=== PATIENT | female | born 1965 | race African-American/Black ===

== ENCOUNTER 2017-09-14 10:13 | Emergency (ER) | payer MEDICAID, SELFPAY ==
[2017-09-14 11:11] LABS: #Basophils 0.1 thou/uL (0.0-0.2); #Eosinphils 0.1 thou/uL (0.0-0.7); #Lymphocytes 4.3 thou/uL (1.20-3.40); #Monocytes 0.7 thou/uL (0.11-0.59); #Neutrophils 7.8 thou/uL (1.40-6.50); %Basophils 0.6 % (0.0-1.0); %Eosinophils 0.6 % (0.0-10.0); %Lymphocytes 33.1 % (21.0-51.0); %Monocytes 5.5 % (0.0-10.0); Hematocrit 33.6 % (36.0-47.0); Mean Platelet Volume 7.6 fL (7.4-10.4); Red Blood Cell (RBC) Count 3.76 mill/uL (4.20-5.40); White Blood Cell (WBC) Count 12.9 thou/uL (4.8-10.8)
[2017-09-14 11:27] LABS: ALT (SGPT) 8 U/L (8-55); AST (SGOT) 13 U/L (5-34); Alkaline Phosphatase 81 U/L (40-150); Anion Gap 12 mmol/L (10-20); BUN (Urea Nitrogen) 20 mg/dL (9.8-20.1); Bilirubin, Total 0.3 mg/dL (0.2-1.2); CK (CPK) 107 U/L (29-168); Calc. Creatinine Clearance 0 mL/min (70-130); Calcium 9.8 mg/dL (7.8-10.44); Carbon Dioxide 25 mmol/L (22-29); Chloride 108 mmol/L (98-107); Estimated GFR-MDRD 53; Globulin 3.5 g/dL (2.4-3.5); Protein, Total 7.2 g/dL (6.0-8.3)
[2017-09-14 11:32] LABS: Troponin I Less than 0.010 ng/mL (< 0.028)
[2017-09-14 11:44] LABS: Bilirubin Negative (Negative); Blood, Urine Negative (Negative); Glucose, Urine (Dipstick) Negative (Negative); Ketone, Urine Negative (Negative); Nitrite Negative (Negative); Protein, Urine (Dipstick) 30 mg/dL (Neg-Trace); Urobilinogen 0.2 mg/dL (0.2-1.0)
[2017-09-14 12:01] LABS: Bacteria/HPF None Seen HPF (None Seen); Hyaline Casts/LPF NONE SEEN LPF (0-3 Hyaline); RBC/HPF None Seen HPF (0-3); Squamous Epithelial 0-3 HPF (0-3); WBC/HPF None Seen HPF (0-3)
--- NOTE | 2017-09-14 12:30 | CT ---
CT HEAD NONCONTRAST DATE: 09/14/17 HISTORY: Altered mental status. Right facial droop. COMPARISON: 11/08/15. FINDINGS: There is no evidence of acute intracranial hemorrhage or infarct. The ventricles appear normal in siz e, shape, and position. Encephalomalacia in the left cerebellar hemisphere has progressed evolved sin ce the prior study. No mass effect or shift of midline structures. Visualized paranasal sinuses remai n well aerated. 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 No acute intracranial abnormalities are demonstrated on n oncontrast CT head. POS: [facility]
== END 2017-09-14 12:38 | disposition home or self-care (01) ==
LOC: ERS 10:13
DX: G51.0 Bell's palsy (principal); E11.9 Type 2 diabetes mellitus without complications; I10 Essential (primary) hypertension; Z79.899 Other long term (current) drug therapy; Z79.4 Long term (current) use of insulin; Z79.82 Long term (current) use of aspirin
CPT/HCPCS: 36415; 70450; 80053; 81003; 81015; 82550; 82553; 84484; 85025; 93005

== ENCOUNTER 2019-01-20 05:39 | Day surgery (SDC) | payer MEDICARE ==
[2019-01-19 12:55] VITALS: BMI 32.1
[~2019-01-20 05:39] MED LIST: EPINEPHrine 0.3 MG, Dextrose 50% 3 ML in Ophthalmic Irrigation Solution 500 ML FS SCH
[2019-01-20] MEDS ORDERED: Phenylephrine 2.5% Ophth Soln 5 ML BOT ONE (06:03)
[2019-01-20] MEDS ORDERED: Cyclopentolate 1% Opth Drop 2 ML BOT ONE (06:03)
[2019-01-20] MEDS ORDERED: Fentanyl 100 MCG/2 ML VIAL ONE (06:45)
[2019-01-20] MEDS ORDERED: Midazolam HCl 2 mg/2 ml Vial ONE (06:45)
[2019-01-20] MEDS ORDERED: Lidocaine 4% PF 5 ML AMP ONE (12:00)
[2019-01-20] MEDS ORDERED: PROPOFOL 200 MG/20 ML VIAL ONE (12:00)
[2019-01-20] MEDS ORDERED: Maxitrol 0.1% Opth Oint 3.5 GM TUBE ONE (12:00)
[2019-01-20] MEDS ORDERED: Triamcinolone 40 MG/ML VIAL ONE (12:00)
[2019-01-20] MEDS ORDERED: Lidocaine 1% PF 5 ML VIAL ONE (12:00)
[2019-01-20] MEDS ORDERED: Bupivacaine 0.75% 10 ML AMP ONE (12:00)
[2019-01-20] MEDS ORDERED: CEFAZOLIN 1 GM VIAL ONE (12:00)
[2019-01-20] MEDS ORDERED: Atropine Sulfate 1% Ophth Ointment 3.5 gm Tube ONE (12:00)
--- NOTE | 2019-01-20 16:22 | OP ---
DATE OF PROCEDURE: 01/20/2019 PREOPERATIVE DIAGNOSES: Tractional retinal detachment, posterior synechiae, right eye. POSTOPERATIVE DIAGNOSES: Tractional retinal detachment, posterior synechiae, right eye. PROCEDURES PERFORMED: Pars plana vitrectomy, tractional retinal detachment repair, and pupilloplasty, right eye. ANESTHESIA: Local with monitored anesthesia care. DESCRIPTION OF PROCEDURE: The patient was identified in the preop holding area. Appropriate informed consent for planned surgical procedure on the right eye had been obtained. The patient was transported to the operative suite. Appropriate cardiopulmonary monitoring was established. Local anesthesia obtained using retrobulbar modified Van Lint lid block using 50:50 mixture of 4% lidocaine and 0.75% bupivacaine. The patient was prepped and draped in usual sterile manner for ophthalmic surgery on the right eye. Lid speculum was placed in the right eye. A 25-gauge trocar was placed through the conjunctiva and sclera superotemporally, inferotemporally, and supranasally. Infusion line was placed inferotemporally. Light pipe vitreous cutter inserted into the eye. Poor view was noted at this time. The pupil was minimally dilated. Iris hooks were placed to enlarge the pupil. Core vitrectomy was performed. Traction was removed from the retinal surface temporally and nasally. Complete air-fluid exchange was performed with 10 minutes being left for fluid to drain posteriorly. Panretinal photocoagulation was placed on non-macular areas of the retina. Silicone oil was infused at the eyes through superior sclerotomy. Eye was noted to retain the normal pressure. Sclerotomy was suture closed with 7-0 Vicryl suture. Conjunctiva was closed with 6-0 plain gut suture. Retrobulbar Kenalog and subconjunctival Ancef were placed. Atropine antibiotic ointment was placed. The eye was patched and shielded. The patient was taken to the postoperative recovery unit in good condition, having suffered no immediate perioperative complications. The patient was instructed to keep the patch and shield on, avoid lifting, bending, avoid flat and back positioning. Follow up in the morning with Dr. Ruffin. Job ID: [id number]
== END 2019-01-20 09:53 | disposition home or self-care (01) ==
LOC: SDC 05:39
PROVIDERS: ATTEND Ophthalmology Retina Specialist
PROC: 08T43ZZ Resection of Right Vitreous, Percutaneous Approach (ICD-10-PCS; principal; 2019-01-20)
DX: H33.41 Traction detachment of retina, right eye (principal); H21.541 Posterior synechiae (iris), right eye; E66.9 Obesity, unspecified; Z68.32 Body mass index [BMI] 32.0-32.9, adult; Z79.4 Long term (current) use of insulin; Z79.82 Long term (current) use of aspirin; Z79.899 Other long term (current) drug therapy; Z88.5 Allergy status to narcotic agent
CPT/HCPCS: 67108; 82962; C1814; 36416; J0171; J0690; J2001; J2250; J2704; J3010; J3301; J3490

== ENCOUNTER 2019-12-23 09:11 | Outpatient (CLI) | payer MEDICARE ==
--- NOTE | 2019-12-23 10:03 | MMO ---
Bilateral MAMMO Bilat Screen [facility]. CLINICAL HISTORY: Patient is 54 years old and is seen for screening. The patient has the following family history of breast cancer: 4 maternal aunts. The patient has no personal history of cancer. VIEWS: The views performed were: bilateral craniocaudal with tomosynthesis and bilateral mediolateral oblique with tomosynthesis. FILMS COMPARED: The present examination has been compared to prior imaging studies performed at [facility] on 06/04/2010, 07/01/2011, 08/16/2012 and 08/17/2015. This study has been interpreted with the assistance of computer-aided detection. MAMMOGRAM FINDINGS: There are scattered fibroglandular densities. There are several stable focal asymmetries seen in both breasts. There are no suspicious masses, suspicious calcifications, or new areas of architectural distortion. IMPRESSION: THERE IS NO MAMMOGRAPHIC EVIDENCE OF MALIGNANCY. A ROUTINE FOLLOW-UP MAMMOGRAM IN 1 YEAR IS RECOMMENDED. THE RESULTS OF THIS EXAM WERE SENT TO THE PATIENT. ACR BI-RADS Category 2 - Benign finding MAMMOGRAPHY NOTE: 1. A negative mammogram report should not delay a biopsy if a dominant of clinically suspicious mass is present. 2. Approximately 10% to 15% of breast cancers are not detected by mammography. 3. Adenosis and dense breasts may obscure an underlying neoplasm. Reported by: SUKUMAR WALDEN MD Electonically Signed: [id number]
== END 2019-12-23 09:12 | disposition home or self-care (01) ==
LOC: BICMAMMO 09:11
PROVIDERS: ATTEND Nurse Practitioner Family
DX: Z12.31 Encounter for screening mammogram for malignant neoplasm of breast (principal); Z80.3 Family history of malignant neoplasm of breast
CPT/HCPCS: 77063; 77067

== ENCOUNTER 2020-07-10 10:07 | Outpatient (CLI) | payer MEDICARE ==
--- NOTE | 2020-07-10 10:24 | RAD ---
Left shoulder 3 views: 07/10/2020 COMPARISON: None available HISTORY: Left shoulder pain FINDINGS: Inferior acromial osteophyte formation. No widening of the acromioclavicular or coracoclavi cular interspace. No displaced fracture or evidence of dislocation is seen. IMPRESSION: No acute osseous abnormality.
== END 2020-07-10 10:08 | disposition home or self-care (01) ==
LOC: RAD-FRANK 10:07
PROVIDERS: ATTEND Nurse Practitioner Family
DX: M25.512 Pain in left shoulder (principal)

== ENCOUNTER 2020-07-16 10:31 | Outpatient (CLI) | payer MEDICARE ==
--- NOTE | 2020-07-16 11:35 | CT ---
Exam: Head CT without contrast HISTORY: Hydrocephalus COMPARISON: 09/14/2017 FINDINGS: Hemorrhage: No intraparenchymal hemorrhage or extra-axial hematoma. Brain parenchyma: Cerebrum: Cortical goode-white matter differentiation is preserved. No mass effect or midline shift. B asilar cisterns are patent Cerebellum: Stable encephalomalacia and gliosis in the left cerebellar hemisphereminimal chronic smal l vessel ischemic changes of the white matter Ventricular system: Ventricles and sulci are patent and symmetric. Calvarium: Intact. Sinuses and mastoid air cells: Adequate aeration. Additional findings: Hyperdensity in the right globe may represent treatment for previous retinal det achment. IMPRESSION: No acute intracranial process.
== END 2020-07-16 10:32 | disposition home or self-care (01) ==
LOC: BICCT 10:31
PROVIDERS: ATTEND Nurse Practitioner Family
DX: G91.9 Hydrocephalus, unspecified (principal)
CPT/HCPCS: 70450

== ENCOUNTER 2020-09-24 06:14 | Outpatient (CLI) | payer MEDICARE ==
[2020-09-24 18:01] LABS: SARS-CoV-2 MS2 Positive; SARS-CoV-2 N Gene Negative; SARS-CoV-2 S Gene Negative; SARS-CoV-2 by NAA Not Detected (NotDetected); SARS-CoV-2 orf1ab Negative
== END 2020-09-24 06:15 | disposition home or self-care (01) ==
LOC: LABBT 06:14
PROVIDERS: ATTEND Ophthalmology Retina Specialist
DX: Z01.812 Encounter for preprocedural laboratory examination (principal); H43.391 Other vitreous opacities, right eye; Z20.828 Contact with and (suspected) exposure to other viral communicable diseases
CPT/HCPCS: 87635; U0003

== ENCOUNTER 2020-09-27 08:36 | Day surgery (SDC) | payer MEDICARE ==
[2020-09-26 09:09] VITALS: BMI 32.5
[~2020-09-27 08:36] MED LIST changes: +EPINEPHrine 0.3 MG in Ophthalmic Irrigation Solution 500 ML IRR SCH; -EPINEPHrine 0.3 MG, Dextrose 50% 3 ML in Ophthalmic Irrigation Solution 500 ML FS SCH
[2020-09-27] MEDS ORDERED: Phenylephrine 2.5% Ophth Soln 5 ML BOT ONE (08:47)
[2020-09-27] MEDS ORDERED: Cyclopentolate HCl 1% 5 ML BOT ONE (08:48)
[2020-09-27] MEDS ORDERED: Midazolam HCl 2 mg/2 ml Vial ONE (10:02)
[2020-09-27] MEDS ORDERED: Fentanyl 100 MCG/2 ML VIAL ONE (10:02)
[2020-09-27] MEDS ORDERED: Maxitrol 0.1% Opth Oint 3.5 GM TUBE ONE (10:55)
[2020-09-27] MEDS ORDERED: Bupivacaine PF 0.75% SDV 10 ML ONE (10:55)
[2020-09-27] MEDS ORDERED: Triamcinolone 40 MG/ML VIAL ONE (10:55)
[2020-09-27] MEDS ORDERED: Lidocaine 1% PF 5 ML VIAL ONE (10:55)
[2020-09-27] MEDS ORDERED: PROPOFOL 200 MG/20 ML VIAL ONE (10:55)
[2020-09-27] MEDS ORDERED: CEFAZOLIN 1 GM VIAL ONE (10:55)
[2020-09-27] MEDS ORDERED: Lidocaine 4% PF 5 ML AMP ONE (10:55)
--- NOTE | 2020-09-27 22:22 | OP ---
DATE OF PROCEDURE: 09/27/2020 PREOPERATIVE DIAGNOSIS: Vitreous opacification, right eye. POSTOPERATIVE DIAGNOSIS: Vitreous opacification, right eye. PROCEDURES PERFORMED: Pars plana vitrectomy, membrane peel. ANESTHESIA: Local with monitored anesthesia care. DESCRIPTION OF PROCEDURE: The patient was identified in the preoperative holding area. Appropriate informed consent for the planned surgical procedure on the right eye had been obtained. The patient was transported to the operative suite and appropriate cardiopulmonary monitoring was established. Local anesthesia was obtained using retrobulbar modified Van Lint lid block. The patient was prepped and draped in usual sterile manner for ophthalmic surgery on the right eye. Lid speculum was placed in the right eye. A 25-gauge trocar was placed in the conjunctiva and sclera supratemporally, inferotemporally, and supranasally. Infusion line was placed inferotemporally. Light pipe and vitreous cutter were inserted into the eye. Core vitrectomy was performed. Viscous fluid removal device was inserted into the eye and silicone oil was removed. excised and peeled away from the intra-ocular lens. Direct inspection showed no elevation of the retina, and sclerotomy suture was closed with 6-0 plain gut suture. Retrobulbar Kenalog and subconjunctival Ancef were placed. Antibiotic ointment was placed. The eye was patched and shielded. The patient was taken to postoperative recovery unit in good condition having suffered no immediate perioperative complications. The patient was instructed to keep patch and shied on, avoid lifting or bending. Followup appointment with Dr. Ruffin. Job ID: [id number]
== END 2020-09-27 12:10 | disposition home or self-care (01) ==
LOC: SDC 08:36
PROVIDERS: ATTEND Ophthalmology Retina Specialist
PROC: 08T43ZZ Resection of Right Vitreous, Percutaneous Approach (ICD-10-PCS; principal; 2020-09-27)
DX: H43.391 Other vitreous opacities, right eye (principal); Z88.5 Allergy status to narcotic agent
CPT/HCPCS: 93005; 93010; J0171; J0690; J2001; J2250; J2704; J3010; J3301; J3490

== ENCOUNTER 2020-10-08 15:17 | Inpatient (IN) | payer MEDICARE ==
[2020-10-08 15:59] LABS: Hemoglobin 11.2 g/dL (12.0-16.0); Mean Corpuscular HGB CONC 31.2 g/dL (32.0-36.0); Mean Corpuscular Hemoglobin 27.9 pg (27.0-31.0); Mean Corpuscular Volume 89.6 fL (78.0-98.0); Mean Platelet Volume 8.5 fL (7.4-10.4); Platelet Count 237 thou/uL (130-400); RBC Distribution Width 13.1 % (11.5-14.5); Red Blood Cell (RBC) Count 4.02 mill/uL (4.20-5.40); White Blood Cell (WBC) Count 17.9 thou/uL (4.8-10.8)
[2020-10-08] MEDS ORDERED: Dextrose 50% Abboject 50 ML SYRINGE ONE ×2 (16:06→16:26)
[2020-10-08 16:13] LABS: Band 1 % (5-11); Lymphocytes 33 % (21-51); MDiff Complete? YES; Monocytes 6 % (0-10); Neutrophil 60 % (42-75); Platelet Morphology Comment Appears Adequate; RBC Morphology Normal
[2020-10-08 16:25] LABS: ALT (SGPT) 15 U/L (8-55); AST (SGOT) 25 U/L (5-34); Albumin 3.9 g/dL (3.5-5.0); Alkaline Phosphatase 90 U/L (40-110); Anion Gap 20 mmol/L (10-20); BUN (Urea Nitrogen) 33 mg/dL (9.8-20.1); Bilirubin, Total 0.2 mg/dL (0.2-1.2); Calc. Creatinine Clearance 0 mL/min (70-130); Calcium 8.7 mg/dL (7.8-10.44); Carbon Dioxide 19 mmol/L (22-29); Chloride 106 mmol/L (98-107); Globulin 4.2 g/dL (2.4-3.5); Glucose 48 mg/dL (70-105); Potassium 5.6 mmol/L (3.5-5.1); Protein, Total 8.1 g/dL (6.0-8.3); Sodium 139 mmol/L (136-145)
[2020-10-08 17:34] LABS: Magnesium 1.6 mg/dL (1.6-2.6)
--- NOTE | 2020-10-08 18:17 | RAD ---
EXAM: Single view of the chest HISTORY: Hypoglycemia with altered mental status COMPARISON: 10/30/2015 FINDINGS: Single view of the chest shows an enlarged but stable cardiomediastinal silhouette. There i s no evidence of consolidation, mass, or pleural effusion. No acute osseous abnormality. IMPRESSION: Stable cardiomegaly
[2020-10-08 19:46] LABS: Bilirubin Negative (Negative); Blood, Urine Negative (Negative); Clarity Clear (Clear); Glucose, Urine (Dipstick) 500 mg/dL (Negative); Ketone, Urine Negative (Negative); Leukocyte Negative Leu/uL (Negative); Nitrite Negative (Negative); Protein, Urine (Dipstick) 10 mg/dL (Neg-Trace); Specific Gravity, Urine 1.009 (1.002-1.036); Urobilinogen Normal mg/dL (Less than 2); pH, Urine 5.5 (5.0-9.0)
[2020-10-08 20:08] LABS: Lactic Acid 3.4 mmol/L (0.5-2.2)
[2020-10-08 20:09] LABS: Anion Gap 18 mmol/L (10-20); BUN (Urea Nitrogen) 33 mg/dL (9.8-20.1); Calc. Creatinine Clearance 0 mL/min (70-130); Calcium 8.5 mg/dL (7.8-10.44); Carbon Dioxide 20 mmol/L (22-29); Chloride 106 mmol/L (98-107); Glucose 379 mg/dL (70-105); Potassium 4.5 mmol/L (3.5-5.1); Sodium 139 mmol/L (136-145)
[2020-10-08] MEDS ORDERED: Dextrose 5% in Water 1,000 ML IV PRN (21:37)
[2020-10-08] MEDS ORDERED: Dextrose 50% Abboject 50 ML SYRINGE SLOW IVP PRN (21:37)
[2020-10-08 21:57] LABS: Troponin I Less than 0.010 ng/mL (< 0.028)
[2020-10-08] MEDS ORDERED: Piperacillin/Tazobactam 4.5 GM in Sodium Chloride 0.9% 100 ML IVPB SCH (22:00)
[2020-10-08 22:28] LABS: Creatinine, Urine 44.14 mg/dL (47-110)
--- NOTE | 2020-10-08 23:12 | PDOC.HHP ---
Hospitalist HPI - History of Present Illness Altered mental status, hypoglycemia History of Present Illness: This is a 55-year-old female patient with a history of Diabetes mellitus on insulin, hypertension who recently had right vitrectomy was brought in by EMS today on account of altered mental status in the setting of hypoglycemia. She notes having taken her Metformin and insulin but missed a mealgetting her altered. On EMS evaluation her blood glucose was in the 30s. On arrival here blood glucose was still low at 48 in spite of dextrose administered by EMS. On arrival she was given 2 rounds of dextrose IV which resolved her hypoglycemia. She was however found to be hyperkalemic with potassium of 5.6 which resolved after initial IV fluid bolus to 4.5. She also had elevated creatinine at 1.77 from a baseline of 1.29 a month ago. After IVF fluid 1 L bolus creatinine interestingly increased to 1.94. Initial lactate was also 2.8 which increased on repeat to 3.4. CBC showed a WBC of 17.9, hemoglobin 11.2 with no bands. Platelet was 234. Upon resolving of her blood glucose, mental state came back to baseline however given her worsening lactic acidosis and increased WBC there was concerns for sepsis. Chest x-ray was ordered which showed stable cardiomegaly with no acute events. Her urinalysis was also essentially negative. Hospitalist team was consulted to consider admission. At the time of my evaluation, patient was sitting up in bed oriented x4 in no acute distress looking quite well. Given the incongruity of her labs however decided to go ahead and admit. Hospitalist ROS - Review of Systems Constitutional: denies: fever, chills, sweats Respiratory: denies: cough, dry, shortness of breath, hemoptysis Cardiovascular: denies: chest pain, palpitations, orthopnea, paroxysmal noc. dyspnea Gastrointestinal: denies: nausea, vomiting, abdominal pain, diarrhea Musculoskeletal: denies: neck pain, shoulder pain Neurological: denies: weakness, numbness, incoordination, change in speech All other systems reviewed; all pertinent +/- noted in HPI/Subj - Medication Medications: Medications: Currently refer to ambulatory [place]. Allergies: Tramadol Hospitalist History - Past Medical History Other Medical History: Diabetes mellitus, hypertension - Past Surgical History Other Surgical History: Vitrectomy - Social History Smoking Status: Never smoker Alcohol: reports: None Living Situation: With Family Activity level: independent ambulation - Exam General Appearance: awake alert Eye: PERRL, anicteric sclera ENT: normocephalic atraumatic, no oropharyngeal lesions Neck: supple, symmetric Heart: RRR, no murmur, no gallops, no rubs Respiratory: CTAB, no wheezes, no rales, no ronchi Gastrointestinal: soft, non-tender, non-distended, normal bowel sounds, no palpable masses, no hepatomegaly Extremities: no cyanosis, no clubbing, no edema Neurological: cranial nerve grossly intact, no weakness, no focal deficits Psychiatric: normal affect, normal behavior, A&O x 3 Hospitalist Results - Labs Result Diagrams: 10/08/20 15:42 10/08/20 19:46 Lab results: WBC 17.9 thou/uL (4.8-10.8) H 10/08/20 15:42 Hgb 11.2 g/dL (12.0-16.0) L 10/08/20 15:42 Hct 36.0 % (36.0-47.0) 10/08/20 15:42 MCV 89.6 fL (78.0-98.0) 10/08/20 15:42 Plt Count 237 thou/uL (130-400) 10/08/20 15:42 Band Neuts % (Manual) 1 % (5-11) L 10/08/20 15:42 Sodium 139 mmol/L (136-145) 10/08/20 19:46 Potassium 4.5 mmol/L (3.5-5.1) 10/08/20 19:46 Chloride 106 mmol/L (98-107) 10/08/20 19:46 Carbon Dioxide 20 mmol/L (22-29) L 10/08/20 19:46 BUN 33 mg/dL (9.8-20.1) H 10/08/20 19:46 Creatinine 1.94 mg/dL (0.6-1.1) H 10/08/20 19:46 Glucose 379 mg/dL (70-105) H 10/08/20 19:46 Lactic Acid 3.4 mmol/L (0.5-2.2) H 10/08/20 19:46 Calcium 8.5 mg/dL (7.8-10.44) 10/08/20 19:46 Total Bilirubin 0.2 mg/dL (0.2-1.2) 10/08/20 15:42 AST 25 U/L (5-34) 10/08/20 15:42 ALT 15 U/L (8-55) 10/08/20 15:42 Alkaline Phosphatase 90 U/L (40-110) 10/08/20 15:42 Troponin I Less than 0.010 ng/mL (< 0.028) 10/08/20 21:12 B-Natriuretic Peptide 29.3 pg/mL (0-100) 10/08/20 17:00 Serum Total Protein 8.1 g/dL (6.0-8.3) 10/08/20 15:42 Albumin 3.9 g/dL (3.5-5.0) 10/08/20 15:42 Lipase 77 U/L (8-78) 10/08/20 17:00 Urine Ketones Negative mg/dL (Negative) 10/08/20 19:30 Urine Blood Negative (Negative) 10/08/20 19:30 Urine Nitrite Negative (Negative) 10/08/20 19:30 Ur Leukocyte Esterase Negative Laura/uL (Negative) 10/08/20 19:30 Hospitalist H&P A/P - Plan Plan: This a 55-year-old female patient facial diabetes mellitus who was brought in on account of altered mental status secondary to hypoglycemia. She has leukocytosis and increasing lactic acid and apparent worsening renal function. She will be admitted for observation. Acute encephalopathy Resolvedsecondary to hypoglycemia We will continue monitoring. Possible sepsis Leukocytosis, initial hypothermia with her temperature 94.3, lactic acidosis All patient appears stable we will take blood cultures and start Zosyn for now She received 2 L normal saline in ED We will monitor overnight Hypoglycemia Resolved We will monitor. CJ on CKD This note improving with IV fluid Nephrology consulted Diabetes mellitus Start correctional dose insulin Monitor glucose. Hypertension Blood pressure stablemonitor VT prophylaxisHeparin CODE STATUSfull code
[2020-10-09] MEDS: Piperacillin/Tazobactam 4.5 GM in Sodium Chloride 0.9% 100 ML IVPB SCH ×4 (00:08→23:16)
[2020-10-09 00:30] LABS: Troponin I Less than 0.010 ng/mL (< 0.028)
[2020-10-09] MEDS: HumaLOG 300 UNITS/3 ML VIAL SC PRN ×4 (00:47→20:27)
[2020-10-09 01:43] VITALS: BMI 32.5
[2020-10-09 05:19] LABS: SARS-CoV-2 MS2 Positive; SARS-CoV-2 N Gene Negative; SARS-CoV-2 S Gene Negative; SARS-CoV-2 by NAA Not Detected (NotDetected); SARS-CoV-2 orf1ab Negative
[2020-10-09 05:29] LABS: #Eosinphils 0.1 thou/uL (0.0-0.7); #Lymphocytes 4.5 thou/uL (1.20-3.40); #Monocytes 0.9 thou/uL (0.11-0.59); #Neutrophils 8.6 thou/uL (1.40-6.50); %Basophils 0.2 % (0.0-1.0); %Eosinophils 0.5 % (0.0-10.0); %Lymphocytes 32.1 % (21.0-51.0); %Monocytes 6.3 % (0.0-10.0); %Neutrophils 60.8 % (42.0-75.0); Hemoglobin 9.4 g/dL (12.0-16.0); Mean Corpuscular HGB CONC 32.6 g/dL (32.0-36.0); Mean Corpuscular Hemoglobin 29.4 pg (27.0-31.0); Mean Corpuscular Volume 89.9 fL (78.0-98.0); Mean Platelet Volume 8.4 fL (7.4-10.4); Platelet Count 209 thou/uL (130-400); RBC Distribution Width 12.6 % (11.5-14.5); Red Blood Cell (RBC) Count 3.19 mill/uL (4.20-5.40); White Blood Cell (WBC) Count 14.1 thou/uL (4.8-10.8)
[2020-10-09 05:51] LABS: Anion Gap 13 mmol/L (10-20); BUN (Urea Nitrogen) 30 mg/dL (9.8-20.1); Calc. Creatinine Clearance 49 mL/min (70-130); Calcium 8.3 mg/dL (7.8-10.44); Carbon Dioxide 23 mmol/L (22-29); Chloride 109 mmol/L (98-107); Glucose 124 mg/dL (70-105); Potassium 4.3 mmol/L (3.5-5.1); Sodium 141 mmol/L (136-145)
[2020-10-09] MEDS: Carvedilol 3.125 MG TAB PO SCH ×2 (08:46→16:44)
[2020-10-09] MEDS: Aspirin Chewable 81 MG TAB PO SCH (08:46)
[2020-10-09] MEDS ORDERED: Sodium Bicarbonate 50 MEQ in Sodium Chloride 0.45% 1,000 ML IV SCH (09:30)
[2020-10-09 09:36] LABS: Ferritin 76.75 ng/mL (10-291)
[2020-10-09 09:48] LABS: Iron 106 ug/dL (50-170); Iron Binding Capacity, Total 235 mcg/dL (265-497)
--- NOTE | 2020-10-09 14:08 | CON ---
DATE OF CONSULTATION: 10/09/2020 SERVICE: Nephrology. REASON FOR CONSULTATION: Elevated creatinine. REQUESTING PHYSICIAN: Chandan Chavez MD HISTORY OF PRESENT ILLNESS: 55-year-old female with known history of diabetes mellitus of insulin, hypertension, and others; admitted due to acute mental status change in the setting of hypoglycemia. The patient reportedly missed her meal and subsequently developed altered mental status and was found to have blood glucose in 30s. She was treated with dextrose infusion with improvement. She, however, also was found to have leukocytosis as well as elevated lactic acid and elevated creatinine. Nephrology consult was requested due to elevation in creatinine. On presentation, creatinine was 1.77 and following treatment with IV fluid, it went up to 1.94. The patient denied nausea, vomiting, diarrhea, dysuria, hematuria, hematochezia, or melena. She also denied fever or chills. She denied use of NSAIDs or have medication use. She reportedly has seen a kidney doctor before, but was unable to tell me the name of the kidney doctor and review of the medical records showed no Nephrology visit prior. PAST MEDICAL HISTORY: 1. Hypertension. 2. Diabetes mellitus. PAST SURGICAL HISTORY: Recent vitrectomy. FAMILY HISTORY: Significant for hypertension, diabetes, and cardiac disease in both parents. SOCIAL HISTORY: The patient lives with family. Denied smoking, alcohol, or recreational drug use. ALLERGIES: NO KNOWN DRUG ALLERGIES REPORTED. MEDICATIONS: Prior to hospital medications are as follows: 1. Multivitamin one tablet daily. 2. Lispro insulin 10 units t.i.d. subcutaneously. 3. Ferrous sulfate 325 mg p.o. b.i.d. 4. Levemir 45 units subcutaneously in the morning. 5. Lisinopril 20 mg p.o. b.i.d. 6. Metformin 1000 mg p.o. b.i.d. with meals. 7. Vitamin B12 1000 mcg p.o. daily. 8. Aspirin 81 mg p.o. daily. 9. Carvedilol 3.125 mg p.o. b.i.d. Current hospital medications are as follows: 1. Zosyn 4.5 g every 8 hours. 2. Aspirin 81 mg p.o. daily. 3. Carvedilol 3.125 mg p.o. b.i.d. REVIEW OF SYSTEMS: 12-point review of system performed was negative other than pertinent positives and negatives included in the history of present illness. PHYSICAL EXAMINATION: VITAL SIGNS: Temperature 97.2, pulse 77, respiratory rate 12, SpO2 of 96% on room air, blood pressure is 138/71. GENERAL: Middle-age female, in no obvious distress. Afebrile. Anicteric. Acyanotic. HEENT: Normocephalic, atraumatic. Oral mucosa is mildly dry. NECK: Supple with no JVD. CARDIOVASCULAR: Regular rhythm and rate with normal heart sounds one and two. RESPIRATORY: Good air entry bilaterally with no crackle or rhonchi or use of accessory muscles. GI: Full, soft, nontender, nondistended with normal bowel sounds. EXTREMITIES: Grossly normal looking atraumatic with no edema or erythema. SKIN: Rather very dry with no erythema or rash. LENS MOLDER: Conscious, alert, oriented x3 with appropriate mental status. Cranial nerves II through XII are grossly intact. DIAGNOSTIC DATA: CBC on presentation on October 08 showed WBC count of 17.9, hemoglobin of 11.2, MCV of 89.6, and platelet of 237. Repeat CBC today showed WBC 14.1, hemoglobin of 9.4, and platelet of 209. Chemistry: CMP performed on presentation yesterday showed sodium 139, potassium 5.6, chloride 106, CO2 of 19, BUN 33, creatinine 1.77, glucose 45, calcium 8.7. Total bilirubin 0.2. AST 25, ALT 15, alkaline phosphatase 90. Total protein 8.1, albumin 3.9. Magnesium was 1.6 and lactic acid was 2.8. Lipase was 77. Repeat chemistry earlier today showed sodium 141, potassium 4.3 chloride 109 CO2 of 23, BUN 30, creatinine 1.68, glucose 124, calcium 8.3. Urinalysis performed yesterday showed colorless clear urine with pH of 5.5, specific gravity of 1.009, positive glucose. Negative nitrite, blood, ketone, bilirubin, and leukocyte esterase. Urine electrolytes showed urine creatinine of 44.14 and urine sodium of 35. Random urine total protein is 17. Chest x-ray performed on presentation showed stable cardiomegaly with no evidence of consolidation mass or pleural effusion. Most recent creatinine prior to current hospitalization was on September 14, 2017, and creatinine then was 1.29. ASSESSMENT: 1. Acute kidney injury: Most likely due to hemodynamic factors related to volume depletion and use of ALEXIS inhibitor. Creatinine is beginning to trend down worse. 2. Chronic kidney disease: Most likely stage III. 3. Hyperkalemia: Due to acute kidney injury and use of qrmkt-bfjfrifpcyr-wsickrqvuyp system nelson. 4. Volume depletion. 5. Acute metabolic encephalopathy due to hypoglycemia. 6. Hypertension: Blood pressure control is acceptable. 7. Diabetes mellitus, on treatment. 8. Lactic acidosis: Most likely related to volume depletion, acute kidney injury, and use of metformin. 9. Metabolic acidosis. PLAN: Start IVF therapy with half-normal saline plus sodium bicarbonate. [place] oral intake advised We will recheck renal function in the morning. Renally dose all medications. Avoid RAAS nelson. Many thanks for involving us in the care of this patient. We will continue to follow along with you. Job ID: [id number] [facility]ITALDarion
[2020-10-09] MEDS ORDERED: Acetaminophen 325 MG TAB PO PRN (17:06)
[2020-10-10 05:50] LABS: Hemoglobin 9.6 g/dL (12.0-16.0); Mean Corpuscular HGB CONC 32.6 g/dL (32.0-36.0); Mean Corpuscular Volume 89.1 fL (78.0-98.0); Mean Platelet Volume 8.3 fL (7.4-10.4); Platelet Count 230 thou/uL (130-400); RBC Distribution Width 12.7 % (11.5-14.5); White Blood Cell (WBC) Count 10.8 thou/uL (4.8-10.8)
[2020-10-10] MEDS: HumaLOG 300 UNITS/3 ML VIAL SC PRN (06:07)
[2020-10-10 06:33] LABS: Albumin 3.2 g/dL (3.5-5.0); Anion Gap 17 mmol/L (10-20); BUN (Urea Nitrogen) 23 mg/dL (9.8-20.1); BUN/Creatinine Ratio 12.85; Calc. Creatinine Clearance 46 mL/min (70-130); Calcium 8.1 mg/dL (7.8-10.44); Carbon Dioxide 21 mmol/L (22-29); Chloride 109 mmol/L (98-107); Glucose 228 mg/dL (70-105); Magnesium 1.7 mg/dL (1.6-2.6); Phosphorus 3.5 mg/dL (2.3-4.7); Potassium 4.2 mmol/L (3.5-5.1); Sodium 143 mmol/L (136-145)
--- NOTE | 2020-10-10 07:53 | PDOC.HOSPP ---
- Subjective Encounter Date: 10/09/20 Encounter Time: 10:00 Subjective: Ms. Hoffman was seen today in follow-up of hypoglycemia and sepsis syndrome. She says she feels much better today. No complaints. - Objective Vital Signs & Weight: Vital Signs (12 hours) Temp Pulse Resp BP Pulse Ox 10/10/20 03:30 98.6 F 70 20 125/76 98 10/09/20 23:22 97.7 F 73 16 122/72 96 10/09/20 20:10 97.8 F 69 22 H 124/67 99 Weight Weight 178 lb I&O: 10/09/20 10/10/20 10/11/20 06:59 06:59 06:59 Intake Total 4245 Balance 4245 Result Diagrams: 10/10/20 05:24 10/10/20 05:24 Additional Labs: Accuchecks 10/10/20 10/09/20 10/09/20 05:23 20:24 16:38 POC Glucose 226 H 226 H 305 H 10/09/20 10/08/20 10/08/20 11:04 16:31 15:32 POC Glucose 311 H 218 H 35 L* Hospitalist ROS - Medication Medications: Active Medications Generic Name Dose Route Start Last Admin Trade Name Freq PRN Reason Stop Dose Admin Acetaminophen 650 mg 10/09/20 17:06 10/09/20 17:31 Acetaminophen 325 Mg Tab PO 650 mg Q6H PRN Administration Headache/Mild Pain 1-3 Aspirin 81 mg 10/09/20 09:00 10/09/20 08:46 Aspirin Chewable 81 Mg Tab PO 81 mg DAILY HETAL Administration Carvedilol 3.125 mg 10/09/20 08:00 10/09/20 16:44 Carvedilol 3.125 Mg Tab PO 3.125 mg BID-WM HETAL Administration Piperacillin Sod/Tazobactam 100 mls @ 200 mls/hr 10/08/20 23:59 10/09/20 23:16 Sod 4.5 gm/ Sodium Chloride IVPB 100 mls 0800,1600,2359 HETAL Administration Insulin Human Lispro 0 units 10/08/20 21:37 10/10/20 06:07 Humalog 300 Units/3 Ml Vial SC 3 units .MILD SLIDING SCALE PRN Administration Mild Correctional Scale Sodium Chloride 10 ml 10/09/20 09:00 10/09/20 20:26 Flush - Normal Saline 10 Ml Syringe IVF 10 ml Q12HR HETAL Administration - Exam Eye: PERRL, anicteric sclera Heart: RRR, no murmur, no gallops, no rubs, normal peripheral pulses Respiratory: CTAB, no wheezes, no rales, no ronchi, normal chest expansion, no tachypnea, normal percussion Gastrointestinal: soft, non-tender, non-distended, normal bowel sounds, no palpable masses, no hepatomegaly Extremities: no cyanosis, 1+ LE edema Hosp A/P (1) Hypoglycemia Code(s): E16.2 - HYPOGLYCEMIA, UNSPECIFIED Status: Acute (2) Leukocytosis Code(s): D72.829 - ELEVATED WHITE BLOOD CELL COUNT, UNSPECIFIED Status: Acute (3) DM type 2 (diabetes mellitus, type 2) Status: Chronic (4) Hypertension Code(s): I10 - ESSENTIAL (PRIMARY) HYPERTENSION Status: Chronic Qualifiers: Hypertension type: essential hypertension Qualified Code(s): I10 - Essential (primary) hypertension - Plan * Hypoglycemia- resolved- will consider re-starting insulin, likely at a reduced dose initially * Sepsis syndrome- ? etiology, this may be a stress reaction from the surgery- will continue IV antibiotics one more day. Follow-up with blood cultures * HTN- blood pressure is stable * If she remains stable overnight anticipate home in the morning.
[2020-10-10] MEDS ORDERED: Sodium Bicarbonate Tab 325 MG TAB PO SCH (09:00)
[2020-10-10] MEDS: Aspirin Chewable 81 MG TAB PO SCH (09:08)
[2020-10-10] MEDS: Carvedilol 3.125 MG TAB PO SCH (09:08)
[2020-10-10] MEDS: Piperacillin/Tazobactam 4.5 GM in Sodium Chloride 0.9% 100 ML IVPB SCH (09:08)
--- NOTE | 2020-10-10 10:25 | PDOC.NEPPN ---
- Subjective Encounter Date: 10/10/20 Subjective: Seen in follow up for elevated creatinine. Feeling good. Tolerating oral intake. Denied nausea and vomiting. - Objective Vital Signs & Weight: Vital Signs (12 hours) Temp Pulse Resp BP Pulse Ox 10/10/20 09:08 96 10/10/20 07:00 98.4 F 70 16 127/79 96 10/10/20 03:30 98.6 F 70 20 125/76 98 10/09/20 23:22 97.7 F 73 16 122/72 96 Weight Weight 178 lb I&O: 10/09/20 10/10/20 10/11/20 06:59 06:59 06:59 Intake Total 4245 Balance 4245 Result Diagrams: 10/10/20 05:24 10/10/20 05:24 Additional Labs: Accuchecks 10/10/20 10/09/20 10/09/20 05:23 20:24 16:38 POC Glucose 226 H 226 H 305 H 10/09/20 11:04 POC Glucose 311 H Nephrology ROS - Medication Medications: Active Medications Generic Name Dose Route Start Last Admin Trade Name Freq PRN Reason Stop Dose Admin Acetaminophen 650 mg 10/09/20 17:06 10/09/20 17:31 Acetaminophen 325 Mg Tab PO 650 mg Q6H PRN Administration Headache/Mild Pain 1-3 Aspirin 81 mg 10/09/20 09:00 10/10/20 09:08 Aspirin Chewable 81 Mg Tab PO 81 mg DAILY HETAL Administration Carvedilol 3.125 mg 10/09/20 08:00 10/10/20 09:08 Carvedilol 3.125 Mg Tab PO 3.125 mg BID-WM HETAL Administration Piperacillin Sod/Tazobactam 100 mls @ 200 mls/hr 10/08/20 23:59 10/10/20 09:08 Sod 4.5 gm/ Sodium Chloride IVPB 100 mls 0800,1600,2359 HETAL Administration Insulin Human Lispro 0 units 10/08/20 21:37 10/10/20 06:07 Humalog 300 Units/3 Ml Vial SC 3 units .MILD SLIDING SCALE PRN Administration Mild Correctional Scale Sodium Bicarbonate 650 mg 10/10/20 09:00 10/10/20 09:08 Sodium Bicarbonate Tab 325 Mg Tab PO 650 mg TID HETAL Administration Sodium Chloride 10 ml 10/09/20 09:00 10/10/20 09:08 Flush - Normal Saline 10 Ml Syringe IVF 10 ml Q12HR HETAL Administration - Exam General Appearance: awake alert Eye: anicteric sclera ENT: normocephalic atraumatic, moist mucosa Neck: supple, symmetric, no JVD Respiratory: no wheezes, no rales, no ronchi, normal chest expansion, no tachypnea Cardiovascular: RRR, no murmur, normal peripheral pulses Gastrointestinal: soft, non-tender, non-distended, normal bowel sounds Extremities: no cyanosis, no edema Neurological: CN's grossly intact, no focal deficits PSYCH: A&O x 3 Nephrology Results - Labs Result Diagrams: 10/10/20 05:24 10/10/20 05:24 Lab results: WBC 10.8 thou/uL (4.8-10.8) 10/10/20 05:24 Hgb 9.6 g/dL (12.0-16.0) L 10/10/20 05:24 Hct 29.4 % (36.0-47.0) L 10/10/20 05:24 MCV 89.1 fL (78.0-98.0) 10/10/20 05:24 Plt Count 230 thou/uL (130-400) 10/10/20 05:24 Neutrophils % 60.8 % (42.0-75.0) 10/09/20 05:12 Band Neuts % (Manual) 1 % (5-11) L 10/08/20 15:42 Sodium 143 mmol/L (136-145) 10/10/20 05:24 Potassium 4.2 mmol/L (3.5-5.1) 10/10/20 05:24 Chloride 109 mmol/L (98-107) H 10/10/20 05:24 Carbon Dioxide 21 mmol/L (22-29) L 10/10/20 05:24 BUN 23 mg/dL (9.8-20.1) H 10/10/20 05:24 Creatinine 1.79 mg/dL (0.6-1.1) H 10/10/20 05:24 Glucose 228 mg/dL (70-105) H 10/10/20 05:24 Lactic Acid 1.2 mmol/L (0.5-2.2) 10/08/20 23:54 Calcium 8.1 mg/dL (7.8-10.44) 10/10/20 05:24 Total Bilirubin 0.2 mg/dL (0.2-1.2) 10/08/20 15:42 AST 25 U/L (5-34) 10/08/20 15:42 ALT 15 U/L (8-55) 10/08/20 15:42 Alkaline Phosphatase 90 U/L (40-110) 10/08/20 15:42 Troponin I Less than 0.010 ng/mL (< 0.028) 10/08/20 23:54 B-Natriuretic Peptide 29.3 pg/mL (0-100) 10/08/20 17:00 Serum Total Protein 8.1 g/dL (6.0-8.3) 10/08/20 15:42 Albumin 3.2 g/dL (3.5-5.0) L 10/10/20 05:24 Lipase 77 U/L (8-78) 10/08/20 17:00 Urine Ketones Negative mg/dL (Negative) 10/08/20 19:30 Urine Blood Negative (Negative) 10/08/20 19:30 Urine Nitrite Negative (Negative) 10/08/20 19:30 Ur Leukocyte Esterase Negative Laura/uL (Negative) 10/08/20 19:30 Sodium 143 mmol/L (136-145) 10/10/20 05:24 Potassium 4.2 mmol/L (3.5-5.1) 10/10/20 05:24 Chloride 109 mmol/L (98-107) H 10/10/20 05:24 Carbon Dioxide 21 mmol/L (22-29) L 10/10/20 05:24 Anion Gap 17 mmol/L (10-20) 10/10/20 05:24 BUN 23 mg/dL (9.8-20.1) H 10/10/20 05:24 Creatinine 1.79 mg/dL (0.6-1.1) H 10/10/20 05:24 Glucose 228 mg/dL (70-105) H 10/10/20 05:24 Calcium 8.1 mg/dL (7.8-10.44) 10/10/20 05:24 Phosphorus 3.5 mg/dL (2.3-4.7) 10/10/20 05:24 Magnesium 1.7 mg/dL (1.6-2.6) 10/10/20 05:24 Albumin 3.2 g/dL (3.5-5.0) L 10/10/20 05:24 Nephrology AP PN - Plan CJ: Due to hemodynamic factors. Some improvement noted. CKD stage 3: baseline creat is unknown. Metabolic acidosis Hyperkalemia. Resolved. Lactic acidosis: Most likely related to CJ and metformin use. Anemia: 2/2 CKD and or chronic illness +/- Iron deficiency HTN: Control acceptable. Plan [place] Laird oral intake advised Start oral alkali therapy. Continue coreg for BP. Avoid nephrotoxic agents including RAAS nelson. Can be discharged from nephrology point of view. Close follow recommended. To be seen in office on 11/06/2020 at 10 am with repeat labs.
--- NOTE | 2020-10-10 10:54 | PDOC.HOSPP ---
- Subjective Encounter Date: 10/10/20 Encounter Time: 10:51 Subjective: Ms. Hoffman was seen today in follow-up of hypoglycemia and sepsis syndrome. She does not have any complaints - Objective Vital Signs & Weight: Vital Signs (12 hours) Temp Pulse Resp BP Pulse Ox 10/10/20 09:08 96 10/10/20 07:00 98.4 F 70 16 127/79 96 10/10/20 03:30 98.6 F 70 20 125/76 98 10/09/20 23:22 97.7 F 73 16 122/72 96 Weight Weight 178 lb I&O: 10/09/20 10/10/20 10/11/20 06:59 06:59 06:59 Intake Total 4245 Balance 4245 Result Diagrams: 10/10/20 05:24 10/10/20 05:24 Additional Labs: Accuchecks 10/10/20 10/09/20 10/09/20 05:23 20:24 16:38 POC Glucose 226 H 226 H 305 H 10/09/20 11:04 POC Glucose 311 H Hospitalist ROS - Medication Medications: Active Medications Generic Name Dose Route Start Last Admin Trade Name Freq PRN Reason Stop Dose Admin Acetaminophen 650 mg 10/09/20 17:06 10/09/20 17:31 Acetaminophen 325 Mg Tab PO 650 mg Q6H PRN Administration Headache/Mild Pain 1-3 Aspirin 81 mg 10/09/20 09:00 10/10/20 09:08 Aspirin Chewable 81 Mg Tab PO 81 mg DAILY HETAL Administration Carvedilol 3.125 mg 10/09/20 08:00 10/10/20 09:08 Carvedilol 3.125 Mg Tab PO 3.125 mg BID-WM HETAL Administration Piperacillin Sod/Tazobactam 100 mls @ 200 mls/hr 10/08/20 23:59 10/10/20 09:08 Sod 4.5 gm/ Sodium Chloride IVPB 100 mls 0800,1600,2359 HETAL Administration Insulin Human Lispro 0 units 10/08/20 21:37 10/10/20 06:07 Humalog 300 Units/3 Ml Vial SC 3 units .MILD SLIDING SCALE PRN Administration Mild Correctional Scale Sodium Bicarbonate 650 mg 10/10/20 09:00 10/10/20 09:08 Sodium Bicarbonate Tab 325 Mg Tab PO 650 mg TID HETAL Administration Sodium Chloride 10 ml 10/09/20 09:00 10/10/20 09:08 Flush - Normal Saline 10 Ml Syringe IVF 10 ml Q12HR HETAL Administration - Exam Eye: PERRL, anicteric sclera Heart: RRR, no murmur, no gallops, no rubs, normal peripheral pulses Respiratory: CTAB, no wheezes, no rales, no ronchi, normal chest expansion, no tachypnea Gastrointestinal: soft, non-tender, non-distended, normal bowel sounds, no pa lpable masses, no hepatomegaly Extremities: no cyanosis, no edema Hosp A/P (1) Hypoglycemia Code(s): E16.2 - HYPOGLYCEMIA, UNSPECIFIED Status: Acute (2) Leukocytosis Code(s): D72.829 - ELEVATED WHITE BLOOD CELL COUNT, UNSPECIFIED Status: Acute (3) DM type 2 (diabetes mellitus, type 2) Status: Chronic (4) Hypertension Code(s): I10 - ESSENTIAL (PRIMARY) HYPERTENSION Status: Chronic Qualifiers: Hypertension type: essential hypertension Qualified Code(s): I10 - Essential (primary) hypertension - Plan * Hypoglycemia- resolved- will cut back her dose of Levemir to 30 units at discharge, and discontinue Metformin * Sepsis syndrome- resolved, I do not believe she had an infectious process * HTN- blood pressure is stable * Stable for discharge home
[2020-10-10 12:09] VITALS: BP 121/71; TEMP 98
--- NOTE | 2020-10-10 15:11 | PQF ---
CLINICAL DOCUMENTATION CLARIFICATION FORM: Dear Dr. Rohan Mccauley Date: 20 Please exercise your independent, professional judgment in responding to the clarification form. Clinical indicators are provided on the bottom of this form for your review. Please check appropriate box(es): [ ] SIRS due to Non-infectious process of DM type 2 w/ hypoglycemia and Acute Metabolic Encephalopathy/CJ [ ] Sepsis due to (please provide infectious source) [ ] DM type 2 with hypoglycemia no SIRS OR sepsis [ X] Other diagnosis ___SIRS non-infectious [ ] Unable to determine For continuity of documentation, please document condition throughout progress notes and discharge summary. Thank You. To be completed by CDI/Coding staff for physician review: CLINICAL INDICATORS - SIGNS / SYMPTOMS / LABS / RESULTS AND LOCATION IN MR ED: HYPERKALEMIA; HYPOGLYCEMIA; LACTIC ACIDOSIS GLUCOSE 30 57 P 75-90 RR 15-18 T 94.3 ORAL 97-99% ON RA Cold and shivering upon arrival 10.09 H&P (AFFRAM): * AMS, hypoglycemia * PMH - IDDM; HTN; AMS in setting of hypoglycemia; * Leukocytosis and increasing lactic acid * Acute encephalopathy - secondary to hypoglycemia; possible sepsis; hypoglycemia; CJ on CKD; * hypothermia w/ her temp at 94.3 PN 10.09 (Garrick): hypoglycemia and sepsis syndrome hypoglycemia; sepsis syndrome - ? etiology - this may be a stress reaction from the surgery 10.09 Consult (Obi): CKD stage 3; acute metabolic encephalopathy due to hypoglycemia; lactic acidosis; metabolic acidosis; CJ and use of metformin; volume depletion; 10.10 PN (Obi): Lactic acidosis: most likely r/t CJ and metformin use 10.10 PN (Garrick): sepsis syndrome resolved, I do not believe she had an infectious process RISK FACTORS / RESULTS AND LOCATION IN MR 10.08 ED: DM type 2 - takes Metformin 1000 mg and Levemir 45 units twice a day in addition to sliding scale insulin TREATMENT / RESULTS AND LOCATION IN MR 10.08 ED: * 2L NS IV * D50W 2 amps IV * blood cultures collected no signs of infection repeat lactic acid * Urine culture CPOE: NEPHROLOGY CONSULT (Dr. Centeno 10.09) MAR: Zosyn IV (12.21 12.23) Sodium bicarbonate 50 meq (12.22) 12.23 PN (Obi): * Brogan oral intake advised * start oral alkali therapy * avoid nephrotoxic agents including RAAS nelson 12.23 PN (Garrick): * cut back her does of Levemir to 30 units at discharges, and discontinue Metformin. CDS Signature: Bhavna Jang RN, CCDS Phone #: [phone] [email or web address] This is a permanent part of the Medical Record [facility]
--- NOTE | 2020-10-10 16:18 | PDOC.DS.DS ---
Provider - Provider Date of Admission: 10/09/20 16:05 Date of Discharge: 10/10/20 Admitting Provider: Chandan Chavez MD Consultations: Nephrology Primary Care Physician: HAI Escobar Course - Hospital Course Hospital Course: Ms. Hoffman is a pleasant 55-year-old female that has a history of diabetes mellitus as well as hypertension. She recently had a right vitrectomy. She developed altered mental status and was brought to the emergency room. There she was found to be hypoglycemic. She received several rounds of IV dextrose however it was also noted that she had an elevated creatinine as well as an elevated white blood cell count. She also had an elevated lactic acid. For this reason there was concern that she could have a septic syndrome that was causing her hypoglycemia. She was placed in observation and cultures were obtained. A nephrology consult was also requested given the acidosis and chronic kidney disease. The patient improved significantly overnight. Her blood glucose remained stable. Metformin was held and her insulin was initially held but then restarted. The acid acidosis is likely the result of her chronic kidney disease and she was started on bicarbonate therapy during her hospital stay by nep hrology. She was monitored in the hospital until her culture results were complete and also until her leukocytosis resolved. She never developed any fever and it is unlikely that the septic syndrome is like his wrist as a result of infection. It could be the result of the stress related to the recent surgical procedure. As a precaution her dose of Levemir was reduced from 45 to 30 units a day and Metformin will be withheld. She is to monitor her blood glucose 7 several times a day record these values and then share this with her primary care physician. She has been instructed to follow-up within the next 1 to 2 weeks. Resuscitation Status: 10/08/20 21:34 Resuscitation Status Routine Resuscitation Status: FULL: Full Resuscitation - Labs Lab Results: 10/10/20 05:24 10/10/20 05:24 Abnormal Lab Results - Last 48 hrs 10/08/20 15:42: Potassium 5.6 H, Carbon Dioxide 19 L, BUN 33 H, Creatinine 1.77 H, Globulin 4.2 H, Albumin/Globulin Ratio 0.9 L 10/08/20 17:00: Lactic Acid 2.8 H 10/08/20 19:30: Urine Glucose (UA) 500 A 10/08/20 19:30: U Random Total Protein 17 H, Urine Creatinine 44.14 L 10/08/20 19:46: Lactic Acid 3.4 H 10/08/20 19:46: Carbon Dioxide 20 L, BUN 33 H, Creatinine 1.94 H 10/09/20 05:12: Chloride 109 H, BUN 30 H, Creatinine 1.68 H 10/09/20 05:12: WBC 14.1 H, RBC 3.19 L, Hgb 9.4 L, Hct 28.7 L, Neutrophils # 8.6 H, Lymphocytes # 4.5 H, Monocytes # 0.9 H 10/09/20 08:38: TIBC 235 L 10/10/20 05:24: Chloride 109 H, Carbon Dioxide 21 L, BUN 23 H, Creatinine 1.79 H, Albumin 3.2 L 10/10/20 05:24: RBC 3.30 L, Hgb 9.6 L, Hct 29.4 L Microbiology - Entire Visit 10/08/20 19:30 Urine voided Urine Culture - Final 10/08/20 17:00 Venous blood - Right Arm Blood Culture - Preliminary NO GROWTH AT 48 HOURS 10/08/20 16:52 Venous blood - Left Arm Blood Culture - Preliminary NO GROWTH AT 48 HOURS - Physical Exam Vitals: Vital Signs (12 hours) Temp Pulse Resp BP Pulse Ox 10/10/20 11:00 98.0 F 70 16 121/71 95 10/10/20 09:08 96 10/10/20 07:00 98.4 F 70 16 127/79 96 Weight Weight 178 lb Physical Exam: The patient was seen and examined on the day of discharge. Problem - Problem (1) Hypoglycemia Code(s): E16.2 - HYPOGLYCEMIA, UNSPECIFIED Status: Acute (2) Leukocytosis Code(s): D72.829 - ELEVATED WHITE BLOOD CELL COUNT, UNSPECIFIED Status: Acute (3) DM type 2 (diabetes mellitus, type 2) Status: Chronic (4) Hypertension Code(s): I10 - ESSENTIAL (PRIMARY) HYPERTENSION Status: Chronic Qualifiers: Hypertension type: essential hypertension Qualified Code(s): I10 - Essential (primary) hypertension (5) CKD (chronic kidney disease) stage 3, GFR 30-59 ml/min Code(s): N18.30 - CHRONIC KIDNEY DISEASE, STAGE 3 UNSPECIFIED Status: Chronic Plan - Discharge Medications Prescriptions: Sodium Bicarbonate [Bicarbonate, Sodium] 650 mg PO TID #60 tab Sodium Bicarbonate [Bicarbonate, Sodium] 325 mg PO TID #180 tab Home Medications: Medication Instructions Recorded Confirmed Type Aspirin Chewable [Aspirin Chewable 81 mg PO DAILY #0 tab 11/13/15 10/08/20 Rx Tablet] Carvedilol [Coreg] 3.125 mg PO BID-WM #0 tab 11/13/15 10/08/20 Rx Lisinopril 1 tab PO BID 01/19/19 10/08/20 History Cyanocobalamin (Vitamin B-12) 1,000 mcg PO DAILY 10/08/20 10/08/20 History [Vitamin B12] Ferrous Sulfate [Iron] 325 mg PO BID 10/08/20 10/08/20 History Insulin Lispro [Insulin Lispro 10 units SQ TID 10/08/20 10/08/20 History Kwikpen U-100] Multivit-Minerals/Folic Acid 1 tab PO DAILY 10/08/20 10/08/20 History [Adult One Daily Multivit Tab] Insulin Detemir [Levemir] 30 unit SQ QAM #0 10/10/20 10/08/20 Rx Sodium Bicarbonate [Bicarbonate, 325 mg PO TID #180 tab 10/10/20 Rx Sodium] Sodium Bicarbonate [Bicarbonate, 650 mg PO TID #60 tab 10/10/20 Rx Sodium] Allergies: tramadol Adverse Reaction (Intermediate, Verified 01/19/19 12:55) Emesis - Discharge Instructions Discharge Instructions:: Follow-up with your Primary Care Provider in 1-2 weeks. MONITOR GLUCOSE LEVELS CLOSELY. MONITOR FOR SIGNS OF HYPOGLYCEMIA. Activity:: Activity as Tolerated - Follow up Plan Referrals: Reny Mott FNP [Primary Care Provider] - 10 Days Navdeep Centeno MD [Active] - 11/06/20 10:00 am Disposition: HOME Quality - Care Measures CORE MEASURES:: N/A
== END 2020-10-10 12:00 | disposition home or self-care (01) | DRG 682 ==
LOC: ERS 15:17 → SURG A 20:43 → OBSVTOIN 10-09 16:05
PROVIDERS: ADMIT Student in an Organized Health Care Education/Training Program; ATTEND Internal Medicine
DX: N17.9 Acute kidney failure, unspecified (principal); G93.41 Metabolic encephalopathy; E87.2 Acidosis; R65.10 Systemic inflammatory response syndrome (SIRS) of non-infectious origin without acute organ dysfunction; E11.649 Type 2 diabetes mellitus with hypoglycemia without coma; Z20.828 Contact with and (suspected) exposure to other viral communicable diseases; E11.22 Type 2 diabetes mellitus with diabetic chronic kidney disease; I12.9 Hypertensive chronic kidney disease with stage 1 through stage 4 chronic kidney disease, or unspecified chronic kidney disease; E86.9 Volume depletion, unspecified; D63.1 Anemia in chronic kidney disease; E87.5 Hyperkalemia; N18.30 Chronic kidney disease, stage 3 unspecified; Z79.4 Long term (current) use of insulin
CPT/HCPCS: 36415; 36416; 71045; 80048; 80053; 80069; 81003; 82306; 82570; 82728; 83540; 83550; 83605; 83690; 83735; 83880; 84156; 84300; 84443; 84484; 85025; 85027; 87040; 87086; 87635; 93005; J2543; J3490; U0003

== ENCOUNTER 2022-05-22 09:17 | Outpatient (CLI) | payer MEDICARE | END 2022-05-22 09:18 | disposition home or self-care (01) | LOC: BICMAMMO 09:17 | PROVIDERS: ATTEND Nurse Practitioner Family | DX: Z12.31 Encounter for screening mammogram for malignant neoplasm of breast (principal); Z80.3 Family history of malignant neoplasm of breast | CPT/HCPCS: 77063; 77067 ==

== ENCOUNTER 2022-09-03 16:23 | Outpatient (CLI) | payer MEDICARE | END 2022-09-03 16:24 | disposition home or self-care (01) | LOC: RAD-FRANK 16:23 | PROVIDERS: ATTEND Nurse Practitioner Family | DX: M79.641 Pain in right hand (principal) ==

== ENCOUNTER 2022-10-22 16:10 | Outpatient (CLI) | payer MEDICARE | END 2022-10-22 16:11 | disposition home or self-care (01) | LOC: RAD-FRANK 16:10 | PROVIDERS: ATTEND Nurse Practitioner Family | DX: M25.572 Pain in left ankle and joints of left foot (principal); M79.89 Other specified soft tissue disorders ==

== ENCOUNTER 2024-03-09 16:00 | Inpatient (IN) | payer MEDICARE ==
[2024-03-09 17:53] LABS: Actual Bicarbonate (HCO3v) 19.4 mEq/L (22-28); Base Excess -6.8 mEq/L (-2.0 to +3.0); Calcium, Ionized (venous) 1.18 mmol/L (1.16-1.32); Chloride (VBG) 104 mmol/L (98-106); Hematocrit-VBG 43 % (36.0-47.0); Hemoglobin (Hb) 14.6 g/dL (11.7-16.0); Potassium (VBG) 4.81 mmol/L (3.70-5.30); Sodium 140 mmol/L (133-146); pH (venous) 7.289 (7.32-7.43)
[2024-03-09 18:10] LABS: #Basophils Less than 0.03 10x3/uL (0.0-0.2); #Eosinphils Less than 0.03 10x3/uL (0.0-0.7); %Basophils 0.1 % (0.0-1.0); %Lymphocytes 26.9 % (21.0-51.0); %Monocytes 1.4 % (0.0-10.0); %Neutrophils 71.1 % (42.0-75.0); Hematocrit 42.8 % (36.0-47.0); Hemoglobin 13.7 g/dL (12.0-16.0); Mean Corpuscular Hemoglobin 28.7 pg (27.0-31.0); Mean Corpuscular Volume 89.5 fL (78.0-98.0); Mean Platelet Volume 11.1 fL (7.4-10.4); Platelet Count 253 10x3/uL (130-400); RBC Distribution Width 13.2 % (11.5-14.5); Red Blood Cell (RBC) Count 4.78 mill/uL (4.20-5.40)
[2024-03-09 18:20] LABS: ALT (SGPT) 12 U/L (8-55); AST (SGOT) 16 U/L (5-34); Albumin 3.6 g/dL (3.5-5.0); Alkaline Phosphatase 109 U/L (40-110); Anion Gap 21 mmol/L (10-20); BUN (Urea Nitrogen) 41 mg/dL (9.8-20.1); Bilirubin, Total 0.5 mg/dL (0.2-1.2); Calc. Creatinine Clearance 0 mL/min (70-130); Calcium 9.6 mg/dL (7.8-10.44); Carbon Dioxide 17 mmol/L (22-29); Chloride 105 mmol/L (98-107); Estimated GFR 20; Globulin 4.9 g/dL (2.4-3.5); Glucose 256 mg/dL (70-105); Lipase 38 U/L (8-78); Potassium 4.8 mmol/L (3.5-5.1); Protein, Total 8.5 g/dL (6.0-8.3); Sodium 138 mmol/L (136-145)
[2024-03-09] MEDS ORDERED: Ondansetron PF 4 MG/2 ML Vial ONE ×2 (18:45→22:09)
[2024-03-09] MEDS ORDERED: Acetaminophen 500 MG TAB ONE (18:45)
[2024-03-09] MEDS ORDERED: INSULIN REGULAR IN 0.9 % NACL 100 UNITS/100 ML BAG ONE (19:16)
[2024-03-09 20:12] LABS: Bacteria/HPF None Seen HPF (None Seen); Bilirubin Negative (Negative); Blood, Urine Negative (Negative); CAUTI Indications for Culture Pelvic or flank pain; Clarity Clear (Clear); Glucose, Urine (Dipstick) Greater than 1000 mg/dL (Negative); Ketone, Urine 20 mg/dL (Negative); Leukocyte Negative Leu/uL (Negative); Nitrite Negative (Negative); Protein, Urine (Dipstick) 70 mg/dL (Neg-Trace); RBC/HPF 0-3 HPF (0-3); Specific Gravity, Urine 1.018 (1.002-1.036); Squamous Epithelial 0-3 HPF (0-3); Urobilinogen Normal mg/dL (Less than 2); WBC/HPF 0-3 HPF (0-3); pH, Urine 5.5 (5.0-9.0)
[2024-03-09 20:17] LABS: Urine Culture Reflex No No
[2024-03-09 20:39] LABS: Influenza A by NAA Not Detected (NotDetected); Influenza B by NAA Not Detected (NotDetected); SARS-CoV-2 NAA Rapid Test Not Detected (NotDetected)
[2024-03-09] MEDS ORDERED: Electrolyte Replacement Protocol 1 EACH IVPB PRN (20:52)
[2024-03-09] MEDS ORDERED: Dextrose 50% Abboject 50 ML SYRINGE SLOW IVP PRN (20:52)
[2024-03-09] MEDS ORDERED: NS 0.9% w/ 20 MEQ KCL 1,000 ML IV PRN ×2 (20:52)
[2024-03-09] MEDS ORDERED: Sodium Chloride 0.9% 1,000 ML IV PRN ×4 (20:52)
[2024-03-09] MEDS ORDERED: Dextrose 5 %-0.45 % NaCl 1,000 ML IV PRN (20:52)
[2024-03-09] MEDS ORDERED: Insulin Reg, Human 100 UNITS in Sodium Chloride 0.9% 100 ML IVPB SCH (21:00)
[2024-03-09] MEDS ORDERED: Dextrose 10% in Water 250 ML ONE (22:03)
[2024-03-09 23:13] VITALS: BMI 30.6
[2024-03-09] MEDS: D5 1/2 NS w/20 mEq KCL 1,000 ML IV PRN (23:35)
[2024-03-10 01:57] LABS: Anion Gap 16 mmol/L (10-20); BUN (Urea Nitrogen) 38 mg/dL (9.8-20.1); Calc. Creatinine Clearance 33 mL/min (70-130); Carbon Dioxide 14 mmol/L (22-29); Chloride 110 mmol/L (98-107); Estimated GFR 25; Glucose 167 mg/dL (70-105); Magnesium 1.8 mg/dL (1.6-2.6); Potassium 4.4 mmol/L (3.5-5.1); Sodium 136 mmol/L (136-145)
[2024-03-10 02:10] LABS: Phosphorus 2.6 mg/dL (2.3-4.7)
[2024-03-10] MEDS: Heparin 5,000 UNITS/ML VIAL SC SCH (03:18)
[2024-03-10 03:35] LABS: #Basophils Less than 0.03 10x3/uL (0.0-0.2); #Eosinphils Less than 0.03 10x3/uL (0.0-0.7); %Basophils 0.1 % (0.0-1.0); %Lymphocytes 28.3 % (21.0-51.0); %Monocytes 4.1 % (0.0-10.0); %Neutrophils 67.1 % (42.0-75.0); Hemoglobin 12.1 g/dL (12.0-16.0); Mean Corpuscular HGB CONC 32.7 g/dL (32.0-36.0); Mean Corpuscular Hemoglobin 28.8 pg (27.0-31.0); Mean Corpuscular Volume 88.1 fL (78.0-98.0); Mean Platelet Volume 11.3 fL (7.4-10.4); Platelet Count 227 10x3/uL (130-400); RBC Distribution Width 13.3 % (11.5-14.5)
[2024-03-10 03:52] LABS: Hemoglobin A1c 8.6 % (4.0-6.0)
[2024-03-10 03:54] LABS: Anion Gap 12 mmol/L (10-20); Anion Gap 13 mmol/L (10-20); BUN (Urea Nitrogen) 35 mg/dL (9.8-20.1); Calc. Creatinine Clearance 32 mL/min (70-130); Calcium 9.1 mg/dL (7.8-10.44); Calcium 9.6 mg/dL (7.8-10.44); Carbon Dioxide 18 mmol/L (22-29); Carbon Dioxide 19 mmol/L (22-29); Chloride 109 mmol/L (98-107); Estimated GFR 24; Glucose 162 mg/dL (70-105); Glucose 163 mg/dL (70-105); Magnesium 1.8 mg/dL (1.6-2.6); Sodium 136 mmol/L (136-145)
[2024-03-10] MEDS ORDERED: HumaLOG 300 UNITS/3 ML VIAL SC PRN (04:33)
[2024-03-10] MEDS ORDERED: Dextrose 50% Abboject 50 ML SYRINGE SLOW IVP PRN (04:33)
[2024-03-10] MEDS ORDERED: Dextrose 5% in Water 1,000 ML IV PRN (04:33)
[2024-03-10] MEDS ORDERED: Glucagon 1 MG/ML KIT IM PRN (04:33)
[2024-03-10] MEDS: Insulin Glargine 30 UNITS/0.3 ML VIAL SC SCH (04:49)
[2024-03-10] MEDS: Ondansetron PF 4 MG/2 ML Vial IVP PRN (09:13)
[2024-03-10] MEDS ORDERED: hydrALAZINE 20 MG/ML VIAL SLOW IVP PRN (21:01)
[2024-03-10] MEDS: Pantoprazole 40 MG VIAL IVP SCH (21:53)
[2024-03-10] MEDS: Metoclopramide HCl 10 MG (2 mL) VIAL IVP SCH (21:53)
[2024-03-10] MEDS: Sodium Bicarbonate Tab 325 MG TAB PO SCH (21:53)
[2024-03-10] MEDS: hydrALAZINE 20 MG/ML VIAL SLOW IVP SCH (21:53)
[2024-03-10] MEDS: Calcium Carbonate 500 MG ChewTAB PO SCH (21:54)
[2024-03-10] MEDS: cefTRIAXone\\ROCEPHIN 1 GM in Sodium Chloride 0.9% 100 ML IVPB SCH (21:54)
[2024-03-11 06:49] LABS: #Basophils Less than 0.03 10x3/uL (0.0-0.2); #Eosinphils Less than 0.03 10x3/uL (0.0-0.7); %Basophils 0.1 % (0.0-1.0); %Lymphocytes 27.9 % (21.0-51.0); %Monocytes 5.3 % (0.0-10.0); %Neutrophils 66.3 % (42.0-75.0); Hematocrit 42.6 % (36.0-47.0); Hemoglobin 13.4 g/dL (12.0-16.0); Mean Corpuscular HGB CONC 31.5 g/dL (32.0-36.0); Mean Corpuscular Hemoglobin 28.2 pg (27.0-31.0); Mean Corpuscular Volume 89.7 fL (78.0-98.0); Mean Platelet Volume 11.5 fL (7.4-10.4); Platelet Count 194 10x3/uL (130-400); RBC Distribution Width 13.2 % (11.5-14.5); Red Blood Cell (RBC) Count 4.75 mill/uL (4.20-5.40)
[2024-03-11 07:13] LABS: Anion Gap 18 mmol/L (10-20); BUN (Urea Nitrogen) 29 mg/dL (9.8-20.1); Calc. Creatinine Clearance 36 mL/min (70-130); Calcium 9.4 mg/dL (7.8-10.44); Carbon Dioxide 16 mmol/L (22-29); Chloride 105 mmol/L (98-107); Estimated GFR 27; Glucose 195 mg/dL (70-105); Lipase 37 U/L (8-78); Magnesium 1.9 mg/dL (1.6-2.6); Potassium 4.3 mmol/L (3.5-5.1); Sodium 135 mmol/L (136-145)
[2024-03-11] MEDS: Carvedilol 3.125 MG TAB PO SCH (09:41)
[2024-03-11] MEDS: Amlodipine 5 MG TAB PO SCH (09:41)
[2024-03-11] MEDS: Multivitamin W/ Minerals 1 TAB PO SCH (09:42)
[2024-03-11] MEDS: Aspirin Chewable 81 MG TAB PO SCH (09:42)
[2024-03-11] MEDS: Insulin Glargine 30 UNITS/0.3 ML VIAL SC SCH (10:01)
[2024-03-11] MEDS: HumaLOG 300 UNITS/3 ML VIAL SC PRN (11:54)
[2024-03-11 17:45] LABS: Lactic Acid 1.4 mmol/L (0.5-2.2)
[2024-03-11] MEDS: Acetaminophen 325 MG TAB PO PRN (20:25)
[2024-03-11] MEDS: Senokot S 8.6-50 MG TAB PO SCH (23:31)
[2024-03-12] MEDS: Metoclopramide HCl 10 MG (2 mL) VIAL IVP PRN (03:56)
[2024-03-12 06:38] LABS: #Basophils 0.03 10x3/uL (0.0-0.2); #Eosinphils Less than 0.03 10x3/uL (0.0-0.7); %Basophils 0.2 % (0.0-1.0); %Eosinophils 0.1 % (0.0-10.0); %Lymphocytes 37.8 % (21.0-51.0); %Monocytes 6.1 % (0.0-10.0); %Neutrophils 55.5 % (42.0-75.0); Hematocrit 39.4 % (36.0-47.0); Hemoglobin 13.2 g/dL (12.0-16.0); Mean Corpuscular HGB CONC 33.5 g/dL (32.0-36.0); Mean Corpuscular Hemoglobin 29.3 pg (27.0-31.0); Mean Corpuscular Volume 87.4 fL (78.0-98.0); Mean Platelet Volume 11.5 fL (7.4-10.4); Platelet Count 197 10x3/uL (130-400); RBC Distribution Width 12.9 % (11.5-14.5); Red Blood Cell (RBC) Count 4.51 mill/uL (4.20-5.40)
[2024-03-12 07:01] LABS: ALT (SGPT) 9 U/L (8-55); AST (SGOT) 15 U/L (5-34); Albumin 3.2 g/dL (3.5-5.0); Alkaline Phosphatase 94 U/L (40-110); Anion Gap 17 mmol/L (10-20); BUN (Urea Nitrogen) 29 mg/dL (9.8-20.1); Bilirubin, Total 0.5 mg/dL (0.2-1.2); Calc. Creatinine Clearance 42 mL/min (70-130); Calcium 9.4 mg/dL (7.8-10.44); Carbon Dioxide 19 mmol/L (22-29); Chloride 98 mmol/L (98-107); Estimated GFR 33; Globulin 4.3 g/dL (2.4-3.5); Glucose 186 mg/dL (70-105); Potassium 4.1 mmol/L (3.5-5.1); Protein, Total 7.5 g/dL (6.0-8.3); Sodium 130 mmol/L (136-145)
[2024-03-12] MEDS: Pantoprazole DR 40 MG TAB PO SCH (08:18)
[2024-03-12] MEDS: Polyethylene Glycol 3350 17 GM Packet PO PRN (11:57)
[2024-03-12] MEDS: Benzocaine/Menthol 1 LOZ LOZ PO PRN (11:57)
[2024-03-12 14:24] LABS: Anion Gap 16 mmol/L (10-20); BUN (Urea Nitrogen) 28 mg/dL (9.8-20.1); Calc. Creatinine Clearance 43 mL/min (70-130); Calcium 9.6 mg/dL (7.8-10.44); Carbon Dioxide 21 mmol/L (22-29); Chloride 97 mmol/L (98-107); Estimated GFR 33; Glucose 135 mg/dL (70-105); Sodium 130 mmol/L (136-145)
[2024-03-12] MEDS: Sodium Chloride 0.9% 1,000 ML IV SCH (16:28)
[2024-03-13] MEDS: Calcium Carbonate 500 MG ChewTAB PO PRN (02:48)
[2024-03-13 06:53] LABS: #Basophils 0.03 10x3/uL (0.0-0.2); #Eosinphils Less than 0.03 10x3/uL (0.0-0.7); %Basophils 0.2 % (0.0-1.0); %Monocytes 6.6 % (0.0-10.0); Hematocrit 39.9 % (36.0-47.0); Hemoglobin 13.2 g/dL (12.0-16.0); Mean Corpuscular HGB CONC 33.1 g/dL (32.0-36.0); Mean Corpuscular Hemoglobin 27.6 pg (27.0-31.0); Mean Corpuscular Volume 83.3 fL (78.0-98.0); Mean Platelet Volume 11.4 fL (7.4-10.4); Platelet Count 212 10x3/uL (130-400); RBC Distribution Width 12.5 % (11.5-14.5); Red Blood Cell (RBC) Count 4.79 mill/uL (4.20-5.40)
[2024-03-13 07:07] LABS: Anion Gap 15 mmol/L (10-20); BUN (Urea Nitrogen) 25 mg/dL (9.8-20.1); Calc. Creatinine Clearance 47 mL/min (70-130); Calcium 9.5 mg/dL (7.8-10.44); Carbon Dioxide 22 mmol/L (22-29); Chloride 103 mmol/L (98-107); Estimated GFR 38; Glucose 93 mg/dL (70-105); Potassium 3.8 mmol/L (3.5-5.1); Sodium 136 mmol/L (136-145)
[2024-03-13 08:15] VITALS: BP 131/74; TEMP 98.9
[2024-03-13] MEDS: Senokot S 8.6-50 MG TAB PO SCH (11:57)
[2024-03-13] MEDS ORDERED: Senokot S 8.6-50 MG TAB PO SCH (21:00)
== END 2024-03-13 14:35 | disposition home or self-care (01) | DRG 638 ==
LOC: ERS 16:00 → IMCU/EMU 20:49 → T4-A 03-11 14:56
PROVIDERS: ADMIT Internal Medicine; ATTEND Internal Medicine
DX: E11.10 Type 2 diabetes mellitus with ketoacidosis without coma (principal); E87.1 Hypo-osmolality and hyponatremia; N17.9 Acute kidney failure, unspecified; N18.4 Chronic kidney disease, stage 4 (severe); N39.0 Urinary tract infection, site not specified; E11.22 Type 2 diabetes mellitus with diabetic chronic kidney disease; I12.9 Hypertensive chronic kidney disease with stage 1 through stage 4 chronic kidney disease, or unspecified chronic kidney disease; I25.10 Atherosclerotic heart disease of native coronary artery without angina pectoris; D72.829 Elevated white blood cell count, unspecified; I25.2 Old myocardial infarction; Z88.8 Allergy status to other drugs, medicaments and biological substances; Z79.82 Long term (current) use of aspirin; Z79.899 Other long term (current) drug therapy; Z79.4 Long term (current) use of insulin; Z86.73 Personal history of transient ischemic attack (TIA), and cerebral infarction without residual deficits; Z98.890 Other specified postprocedural states; Z83.3 Family history of diabetes mellitus
CPT/HCPCS: 36415; 36416; 74176; 80048; 80053; 81001; 82010; 82805; 83036; 83605; 83690; 83735; 83930; 84100; 84145; 84484; 85025; 87086; 93005; 96365; 96366; 96375; C9113; J0360; J0696; J1644; J1815; J2405; J2765; J3480; J3490; J7050

== ENCOUNTER 2024-08-22 11:40 | Outpatient (CLI) | payer MEDICARE | END 2024-08-22 11:41 | disposition home or self-care (01) | LOC: BICMAMMO 11:40 | PROVIDERS: ATTEND Nurse Practitioner Family | DX: Z12.31 Encounter for screening mammogram for malignant neoplasm of breast (principal); Z80.3 Family history of malignant neoplasm of breast | CPT/HCPCS: 77063; 77067 ==